=== PATIENT | male | born 1980 | race African-American/Black ===

== ENCOUNTER 2021-01-18 23:12 | Emergency (ER) | payer OTHER, BC ==
[~2021-01-18] VITALS: Ht 175.3 cm; Wt 100.0 kg
--- NOTE | 2021-01-18 23:28 | PHYS DOC ---
General Adult EDM: Chief Complaint: SHOULDER INJURY HPI: HPI: Patient is a 40 year old male with no past medical history presents with a chief complaint of right shoulder pain. Patient states prior to arrival he was at work when he tripped and fell and landed on outstretched right arm. Patient states he immediately felt some discomfort in his right shoulder. Patient states he feels as if the ball went out of its socket. Patient without any other injuries. Pain with range of motion of the right upper extremity patient passively only able to lift his right upper extremity to 90 degrees. Right upper extremity is neurovascularly intact. Review of Systems: Review of Systems: Review of systems: Constitutional symptoms- No fever, no chills. Eyes- No Discharge, No Visual Loss Respiratory symptoms- No shortness of breath, No wheezing, No Dyspnea on Exertion Cardiovascular Systems; No chest pain, No Palpitations, No syncope Gastrointestinal symptoms: NO abdominal pain, no nausea, no vomiting or diarrhea. Genitourinary symptoms: No dysuria. Musculoskeletal symptoms: No back pain positive extremity pain. NEUROLOGICAL Symptoms: No headache, no generalized weakness; No focal Weakness Heart Score: C/O Chest Pain: No Risk Factors: Risk Factors: DM, Current or recent (<one month) smoker, HTN, HLP, family history of CAD, obesity. Risk Scores: Score 0 - 3: 2.5% MACE over next 6 weeks - Discharge Home Score 4 - 6: 20.3% MACE over next 6 weeks - Admit for Clinical Observation Score 7 - 10: 72.7% MACE over next 6 weeks - Early Invasive Strategies Physical Exam: PE: General: alert, no acute distress. Skin: warm, dry and intact. Head:: Normocephalic, atraumatic. Neck: Trachea midline. Eyes: EOMI, Normal conjunctiva, No drainage CARDIOVASCULAR: Regular rate and rhythm RESPIRATORY: No respiratory distress Back: Full range of motion. MUSCULOSKELETAL: Decreased range of motion right upper extremity humerus. Pain with range of motion actively able to lift right arm to 90 degrees. Right upper extremity neurovascularly intact GASTROINTESTINAL: Abdomen soft without rebound or guarding. NEUROLOGICAL: Alert and noted to person, place and time. No neurological deficits observed Psychiatric: Cooperative. Normal judgment EKG: EKG: [] Radiology/Procedures: Radiology/Procedures: [] Impression: no acute fracture or dislocation Course & Med Decision Making: Course & Med Decision Making Pertinent Labs and Imaging studies reviewed. (See chart for details) [] Patient was evaluated for chief complaint. Work-up consisted of radiologic imaging. Results reviewed and discussed with patient. Patient placed in a sling. Discharged home with Ultram. Patient referred to orthopedics. Joan Disclaimer: Joan Disclaimer: This electronic medical record was generated, in whole or in part, using a voice recognition dictation system. Departure Departure Impression: Primary Impression: Right shoulder pain Additional Impression: Rotator cuff injury Disposition: 01 DC HOME SELF CARE/HOMELESS Condition: IMPROVED Referrals: JOSE ALEJANDRO LIVINGSTON MD Patient Instructions: Rotator Cuff Injury, Shoulder Pain Scripts Tramadol Hcl (ULTRAM) 50 Mg Tablet 1 TAB PO PRN Q6HRS PRN for pain MDD 4 Tablet(s) for 7 Days, #28 TAB 0 Refills Prov: EM SCOTT DO 01/18/21 EM SCOTT DO Jan 18, 2021 23:28
[2021-01-18] MEDS ORDERED: TRAM-48 PO (23:57)
[2021-01-19 00:13] VITALS: BP 161/110
--- NOTE | 2021-01-19 01:15 | RAD ---
Right shoulder 3 views: Reason for examination: Pain after fall. No fracture or dislocation is evident. The bone density is normal. No abnormal periosteal reaction is seen. Joint spaces are maintained. IMPRESSION: No acute abnormality at the right shoulder. Electronically signed by: Chelsey Santana MD (01/19/2021 1:12 AM) [facility]
== END 2021-01-19 00:11 | disposition home or self-care (01) ==
LOC: ER 23:12
DX: S46.091A Other injury of muscle(s) and tendon(s) of the rotator cuff of right shoulder, initial encounter (principal); M25.511 Pain in right shoulder; W01.0XXA Fall on same level from slipping, tripping and stumbling without subsequent striking against object, initial encounter; Y93.89 Activity, other specified; Y92.89 Other specified places as the place of occurrence of the external cause; Y99.0 Civilian activity done for income or pay
CPT/HCPCS: 73030; 99284; A4565